=== PATIENT | male | born 1975 | race Caucasian/White ===

== ENCOUNTER 2018-08-10 10:22 | Emergency (ER) | END 2018-08-10 11:39 | disposition home or self-care (01) ==

== ENCOUNTER 2019-01-14 16:52 | Emergency (ER) | payer SELFPAY ==
[~2019-01-14] VITALS: Ht 162.6 cm; Wt 68.2 kg
[~2019-01-14 16:52] MED LIST: AZIT250T PO; BENZ-6 PO; NAPR-985 PO; PROM6.2515 PO
[2019-01-14 17:29] VITALS: Ht 162.6 cm; Wt 68.2 kg
[2019-01-14] MEDS ORDERED: DEXAMETHASONE 10 MG/ML 1 ML INJ IM ONE (19:30)
[2019-01-14] MEDS ORDERED: DIPHENHYDRAMINE 25 MG CAP PO ONE (19:30)
[2019-01-14] MEDS ORDERED: BEN25 PO (19:33)
[2019-01-14] MEDS ORDERED: MED4DP PO (19:33)
--- NOTE | 2019-01-14 19:37 | ERD ---
ER Documentation Chief Complaint Chief Complaint GENERALIZED BODY ITCHING HPI 43-year-old male with no reported past medical or surgical history who presents with complaint of bilateral lower extremity rash. First noticed rash about 3 days ago. Rash worst throughout the lower extremities extending from calf to foot is nonpainful but quite itchy. He otherwise denies fevers, chills, environmental exposures, sick contacts, recent travel, use of new products, antibiotic or chronic medication use. He denies any history of similar type allergic reactions. Denies any shortness of breath, dyspnea, angioedema. At time examination nontoxic-appearing and afebrile. ROS All systems reviewed and are negative except as per history of present illness. Medications Home Meds Active Scripts Methylprednisolone* (Medrol* DOSE PACK) 4 Mg/Dose-Pack Tab.ds.pk, 4 MG PO . DIRECTED, #1 PACKET Prov:JAM DARLING PA-C 01/14/19 Diphenhydramine Hcl* (Benadryl*) 25 Mg Cap, 25 MG PO Q6 for itch, #14 CAP Prov:JAM DARLING PA-C 01/14/19 Benzonatate* (Tessalon Perle*) 100 Mg Capsule, 100 MG PO Q8H PRN for COUGH, #30 CAP Prov:SON CANCINO PA-C 08/10/18 Promethazine Hcl* (Promethazine Hcl* Syrup) 6.25 Mg/5 Ml Syrup, 6.25 MG PO Q6H PRN for COUGH, #100 ML Prov:SON CANCINO PA-C 08/10/18 Naproxen* (Naprosyn*) 500 Mg Tablet, 500 MG PO BID PRN for PAIN AND/OR INFLAMMATION, #30 TAB Prov:SON CANCINO PA-C 08/10/18 Azithromycin* (Zithromax*) 250 Mg Tablet, 250 MG PO .TariPACK DIRECTED, #6 TAB TAKE 500 MG (2 TABS) THE FIRST DAY THEN 250 MG (1 TAB) DAYS 2-5 Prov:SON CANCINO PA-C 08/10/18 Allergies Allergies: Coded Allergies: No Known Allergy (Unverified , 08/10/18) PMhx/Soc Medical and Surgical Hx: pt denies Medical Hx, pt denies Surgical Hx Hx Alcohol Use: Yes Hx Substance Use: No Hx Tobacco Use: Yes Smoking Status: Current every day smoker FmHx Family History: No diabetes, No coronary disease, No other Physical Exam Vitals Vital Signs Date Temp Pulse Resp B/P (MAP) Pulse Ox O2 O2 Flow FiO2 Time Delivery Rate 01/14/19 98.3 84 16 103/65 97 17:29 (78) Physical Exam Const: No acute distress Head: Atraumatic Eyes: Normal Conjunctiva ENT: Normal External Ears, Nose and Mouth. Neck: Full range of motion. No meningismus. Resp: Clear to auscultation bilaterally Cardio: Regular rate and rhythm, no murmurs Abd: Soft, non tender, non distended. Normal bowel sounds Skin: No petechiae or rashes Back: No midline or flank tenderness Ext: No cyanosis, or edema Neur: Awake and alert Psych: Normal Mood and Affect Results 24 hrs Current Medications Medications Dose Sig/Adele Start Time Status Last (Trade) Ordered Route PRN Stop Time Admin Dose Reason Admin 25 mg ONCE ONCE 01/14/19 DC 01/14/19 Diphenhydrami PO 19:30 19:25 ne HCl 01/14/19 19:31 (Benadryl) 10 mg ONCE ONCE 01/14/19 DC 01/14/19 Dexamethasone IM 19:30 19:25 (Decadron) 01/14/19 19:31 Procedures/MDM 43-year-old male presents with bilateral lower extremity rash. Patient is afebrile without any signs or symptoms of systemic infection. No concerning respiratory symptoms. I have low suspicion for any other process warranting further emergent care or work-up. Patient discharged with short dose of steroids as well as Benadryl. Strict return precautions explained in detail to patient. DISPOSITION PLAN: We discussed follow up with the patient's primary care doctor within 24 to 48 hours. Patient counseled regarding my diagnostic impression and care plan. Prior to discharge all questions answered. Pt agrees with treatment plan and understands strict return precautions. Precautionary instructions provided including instructions to return to the ER if not improving or for any worsening or changing symptoms or concerns. Disclaimer: Inadvertent spelling and grammatical errors are likely due to EHR/dictation software use and do not reflect on the overall quality of patient care. Also, please note that the electronic time recorded on this note does not necessarily reflect the actual time of the patient encounter. Departure Diagnosis: Primary Impression: Rash and other nonspecific skin eruption Condition: Stable Patient Instructions: Self-Care for Skin Rashes Referrals: [facility] YOU HAVE RECEIVED A MEDICAL SCREENING EXAM AND THE RESULTS INDICATE THAT YOU DO NOT HAVE A CONDITION THAT REQUIRES URGENT TREATMENT IN THE EMERGENCY DEPARTMENT. FURTHER EVALUATION AND TREATMENT OF YOUR CONDITION CAN WAIT UNTIL YOU ARE SEEN IN YOUR DOCTORS OFFICE WITHIN THE NEXT 1-2 DAYS. IT IS YOUR RESPONSIBILITY TO MAKE AN APPOINTMENT FOR FOLOW-UP CARE. IF YOU HAVE A PRIMARY DOCTOR --you should call your primary doctor and schedule an appointment IF YOU DO NOT HAVE A PRIMARY DOCTOR YOU CAN CALL OUR PHYSICIAN REFERRAL HOTLINE AT IF YOU CAN NOT AFFORD TO SEE A PHYSICIAN YOU CAN CHOSE FROM THE FOLLOWING [facility] [id number] [facility]. [facility] [address] [facility] [facility] [address] [facility] [facility] [address] [facility]. [facility] [address] [facility]. [facility] [address] Additional Instructions: Call your primary care doctor TOMORROW for an appointment during the next 2-3 days.See the doctor sooner or return here if your condition worsens before your appointment time. JAM DARLING PA-C January 14, 2019 19:37
[2019-01-14 20:15] VITALS: BP 118/65; PULSE 63; RESP 16
== END 2019-01-14 20:15 | disposition home or self-care (01) ==
LOC: FTE 16:52
DX: R21 Rash and other nonspecific skin eruption (principal); F17.210 Nicotine dependence, cigarettes, uncomplicated
CPT/HCPCS: 96372; 99284; J1100